=== PATIENT | female | born 1990 | race American Indian/Alaskan Native ===

== ENCOUNTER 2016-12-24 22:45 | Emergency (ER) | payer SELFPAY ==
[2016-12-25 00:19] VITALS: BP 109/80
--- NOTE | 2016-12-25 07:26 | XRay Report ---
RIGHT HAND, 3 views: History: Right hand pain and swelling The bony architecture is intact. Bony alignment is normal. No soft tissue abnormalities are seen. The joint spaces appear preserved. IMPRESSION: Normal right hand.
== END 2016-12-25 00:13 | disposition left against medical advice (07) ==
LOC: ED 22:45
DX: M79.644 Pain in right finger(s) (principal); M79.89 Other specified soft tissue disorders; Z53.21 Procedure and treatment not carried out due to patient leaving prior to being seen by health care provider